=== PATIENT | female | born 1945 | race Caucasian/White ===

== ENCOUNTER → 2024-05-04 | Outpatient (CLI) | payer OTHER, SELFPAY ==
--- NOTE | 2024-05-04 10:26 | XR_ITS ---
Examination: PA lateral chest 2 views TECHNIQUE: Upright PA lateral chest 2 views Exam date and time: April 26, 2024 1042 hours Comparison April 04, 2011 INDICATIONS: Coughing left anterior chest pain beginning one week ago. FINDINGS: COPD with significant hyperexpansion Basilar bronchitis pattern Mild opacity on the lateral view in the lingular segment suspicious for early pneumonia No pulmonary edema Prominent osteopenia IMPRESSION: COPD Bibasilar bronchitis pattern Suspicious for early pneumonia in the lingular segment left upper lobe, recommend short-term chest imaging follow-up
--- NOTE | 2024-05-04 10:26 | XR_ITS ---
Examination: Lumbar spine, 5 views Technique: Lumbar spine AP, lateral, coned lateral lower lumbar spine, bilateral obliques 5 views Exam date and time: May 04, 2024 1048 hours INDICATIONS: Lower back pain beginning 3 weeks ago. FINDINGS: Severe osteopenia Moderate to advanced bilateral hip osteoarthritis Advanced diffuse facet arthropathy No lumbar fracture Mild to moderate diffuse lumbar degenerative disc disease, most prominent at L5-S1 Heavy abdominal aortic calcification with calcified mass in the spleen partially visualized, 6 cm IMPRESSION: Mild to moderate diffuse lumbar degenerative disc disease with significant spinal stenosis
== END | disposition home or self-care (01) ==
LOC: CDIM 09:59
PROVIDERS: PCP Internal Medicine; Referring Provider Internal Medicine; Visit Provider Internal Medicine
DX: J44.9 Chronic obstructive pulmonary disease, unspecified (principal); M51.369 Other intervertebral disc degeneration, lumbar region without mention of lumbar back pain or lower extremity pain; M48.061 Spinal stenosis, lumbar region without neurogenic claudication
CPT/HCPCS: 71046; 72110

== ENCOUNTER → 2024-05-18 | Outpatient (CLI) | payer OTHER, SELFPAY ==
[2024-05-18 10:37] LABS: Basophils # (Auto) 0.1 Thou/mm3 (0.0-0.2); Basophils % (Auto) 1 % (0-2.5); Eosinophils # (Auto) 0.4 Thou/mm3 (0.0-0.5); Eosinophils % (Auto) 5 % (0-10); Hematocrit 37.6 % (36.0-46.0); Hemoglobin 12.3 g/dL (12.0-16.0); Immature Granulocytes % (Auto) 0 % (0-0); Immature Granulocytes Auto 0.02 Thou/mm3 (0.00-0.00); Lymphocytes # (Auto) 2.3 Thou/mm3 (1.0-4.8); Lymphocytes % (Auto) 29 % (10-50); Mean Corpuscular HGB Conc 32.7 g/dl (31.0-37.0); Mean Corpuscular Hemoglobin 28.5 pg (25.0-35.0); Mean Corpuscular Volume 87 fL (80-100); Monocytes # (Auto) 0.5 Thou/mm3 (0.0-0.8); Monocytes % (Auto) 6 % (0-12); Neutrophils # (Auto) 4.8 Thou/mm3 (1.8-7.7); Neutrophils % (Auto) 60 % (37-80); Nucleated Red Blood Cell % 0 /100 WBC (0); Platelet Count 196 Thou/mm3 (140-440); RDW Standard Deviation 42.6 fL (36.4-46.3); Red Blood Count 4.32 Miln/mm3 (4.00-5.20)
[2024-05-18 10:46] LABS: Glucose Estimated Average 143 mg/dL (80-131); Hemoglobin A1C 6.6 % Hgb (4.8-6.0)
[2024-05-18 10:55] LABS: Vitamin D 25 Hydroxy Total 35.5 ng/mL (7.3-40.2)
[2024-05-18 10:59] LABS: Alanine Aminotransferase 20 U/L (10-49); Albumin, Serum 4.7 gm/dL (3.4-4.8); Albumin/Globulin Ratio 2.2 (1.2-2.2); Alkaline Phosphatase 82 U/L (46-116); Anion Gap 7 (7-16); Aspartate Amino Transferase 21 U/L (0-34); BUN/Creatinine Ratio 26 Ratio (12-20); Bilirubin,Total 0.6 mg/dL (0.3-1.2); Blood Urea Nitrogen 21 mg/dL (9-23); Calcium 10.5 mg/dL (8.3-10.6); Calcium (Corrected) 10.5 mg/dL (8.5-10.1); Carbon Dioxide 28.3 mMol/L (20.0-31.0); Cardiac Risk Estimate 2.3 RATIO (3.7-5.6); Chloride 107 mMol/L (98-107); Cholesterol 185 mg/dL (132-200); Creatinine (Component) 0.8 mg/dL (0.6-1.3); Globulin 2.1 gm/dL (2.3-3.5); Glucose 167 mg/dL (74-106); HDL Cholesterol 79 mg/dL (40-60); LDL Cholesterol,Calculated 87 mg/dL (0-130); Osmolality,Calculated 290 (275-295); Potassium 3.9 mMol/L (3.4-5.1); Sodium 142 mMol/L (136-145); Thyroid Stimulating Hormone 1.41 uIU/mL (0.55-4.78); Total Protein 6.8 gm/dL (5.7-8.2); Triglycerides 96 mg/dL (30-150); eGFR > 60 See Note
== END | disposition home or self-care (01) ==
PROVIDERS: PCP Internal Medicine; Referring Provider Internal Medicine; Visit Provider Internal Medicine
DX: I11.0 Hypertensive heart disease with heart failure (principal); E11.9 Type 2 diabetes mellitus without complications; E55.9 Vitamin D deficiency, unspecified; E78.2 Mixed hyperlipidemia; E03.9 Hypothyroidism, unspecified
CPT/HCPCS: 36415; 80053; 80061; 82306; 83036; 84439; 84443; 85025

== ENCOUNTER → 2024-09-08 | Outpatient (CLI) | payer OTHER, SELFPAY ==
[2024-09-08 10:19] LABS: Basophils # (Auto) 0.1 Thou/mm3 (0.0-0.2); Basophils % (Auto) 1 % (0-2.5); Eosinophils # (Auto) 0.4 Thou/mm3 (0.0-0.5); Eosinophils % (Auto) 5 % (0-10); Hematocrit 37.6 % (36.0-46.0); Hemoglobin 12.2 g/dL (12.0-16.0); Immature Granulocytes % (Auto) 0 % (0-0); Immature Granulocytes Auto 0.02 Thou/mm3 (0.00-0.00); Lymphocytes # (Auto) 2.2 Thou/mm3 (1.0-4.8); Lymphocytes % (Auto) 28 % (10-50); Mean Corpuscular HGB Conc 32.4 g/dl (31.0-37.0); Mean Corpuscular Hemoglobin 27.9 pg (25.0-35.0); Mean Corpuscular Volume 86 fL (80-100); Monocytes # (Auto) 0.5 Thou/mm3 (0.0-0.8); Monocytes % (Auto) 7 % (0-12); Neutrophils # (Auto) 4.8 Thou/mm3 (1.8-7.7); Neutrophils % (Auto) 60 % (37-80); Nucleated Red Blood Cell % 0 /100 WBC (0); Platelet Count 213 Thou/mm3 (140-440); RDW Standard Deviation 44.2 fL (36.4-46.3); Red Blood Count 4.38 Miln/mm3 (4.00-5.20); White Blood Count 7.9 Thou/mm3 (3.6-11.0)
[2024-09-08 10:49] LABS: Glucose Estimated Average 140 mg/dL (80-131); Hemoglobin A1C 6.5 % Hgb (4.8-6.0)
[2024-09-08 10:51] LABS: Iron 30 mcg/dL (50-170)
[2024-09-08 10:53] LABS: Alanine Aminotransferase 16 U/L (10-49); Albumin, Serum 4.7 gm/dL (3.4-4.8); Albumin/Globulin Ratio 2.4 (1.2-2.2); Alkaline Phosphatase 73 U/L (46-116); Anion Gap 10 (7-16); Aspartate Amino Transferase 25 U/L (0-34); BUN/Creatinine Ratio 31 Ratio (12-20); Bilirubin,Total 0.6 mg/dL (0.3-1.2); Blood Urea Nitrogen 25 mg/dL (9-23); Carbon Dioxide 26.2 mMol/L (20.0-31.0); Chloride 101 mMol/L (98-107); Creatinine (Component) 0.8 mg/dL (0.6-1.3); Free T4 (Free Thyroxine) 1.48 ng/dL (0.89-1.76); Glucose 143 mg/dL (74-106); Magnesium 1.7 mg/dL (1.6-2.6); Osmolality,Calculated 280 (275-295); Potassium 3.7 mMol/L (3.4-5.1); Sodium 137 mMol/L (136-145); Thyroid Stimulating Hormone 1.66 uIU/mL (0.55-4.78); Total Protein 6.7 gm/dL (5.7-8.2); eGFR > 60 See Note
[2024-09-08 11:09] LABS: Cardiac Risk Estimate 2.7 RATIO (3.7-5.6); Cholesterol 186 mg/dL (132-200); HDL Cholesterol 69 mg/dL (40-60); LDL Cholesterol,Calculated 103 mg/dL (0-130); Triglycerides 70 mg/dL (30-150)
[2024-09-08 11:47] LABS: Folate > 24.00 ng/mL (>5.38); Vitamin B12 584 pg/mL (211-911); Vitamin D 25 Hydroxy Total 37.5 ng/mL (7.3-40.2)
== END | disposition home or self-care (01) ==
LOC: COPL 09:29
PROVIDERS: PCP Internal Medicine; Referring Provider Internal Medicine; Visit Provider Internal Medicine
DX: E11.9 Type 2 diabetes mellitus without complications (principal); E55.9 Vitamin D deficiency, unspecified; I11.0 Hypertensive heart disease with heart failure
CPT/HCPCS: 36415; 80053; 80061; 82306; 82607; 82746; 83036; 83540; 83735; 84439; 84443; 85025

== ENCOUNTER → 2024-10-19 | Outpatient (CLI) | payer OTHER, SELFPAY ==
[2024-10-19 10:17] LABS: Glucose Estimated Average 137 mg/dL (80-131); Hemoglobin A1C 6.4 % Hgb (4.8-6.0)
[2024-10-19 10:22] LABS: Vitamin D 25 Hydroxy Total 40.2 ng/mL (7.3-40.2)
[2024-10-19 10:23] LABS: Basophils # (Auto) 0.1 Thou/mm3 (0.0-0.2); Basophils % (Auto) 1 % (0-2.5); Eosinophils # (Auto) 0.3 Thou/mm3 (0.0-0.5); Eosinophils % (Auto) 3 % (0-10); Hematocrit 35.8 % (36.0-46.0); Hemoglobin 12.2 g/dL (12.0-16.0); Immature Granulocytes Auto 0.02 Thou/mm3 (0.00-0.00); Lymphocytes # (Auto) 1.9 Thou/mm3 (1.0-4.8); Lymphocytes % (Auto) 23 % (10-50); Mean Corpuscular HGB Conc 34.1 g/dl (31.0-37.0); Mean Corpuscular Hemoglobin 28.4 pg (25.0-35.0); Mean Corpuscular Volume 83 fL (80-100); Monocytes # (Auto) 0.5 Thou/mm3 (0.0-0.8); Monocytes % (Auto) 6 % (0-12); Neutrophils # (Auto) 5.5 Thou/mm3 (1.8-7.7); Neutrophils % (Auto) 66 % (37-80); Nucleated Red Blood Cell # 0.00 Thou/mm3 (0.00-0.00); Nucleated Red Blood Cell % 0 /100 WBC (0); Platelet Count 198 Thou/mm3 (140-440); RDW Standard Deviation 45.7 fL (36.4-46.3); Red Blood Count 4.29 Miln/mm3 (4.00-5.20); White Blood Count 8.3 Thou/mm3 (3.6-11.0)
[2024-10-19 10:33] LABS: Alanine Aminotransferase 20 U/L (10-49); Albumin, Serum 4.5 gm/dL (3.4-4.8); Albumin/Globulin Ratio 2.0 (1.2-2.2); Alkaline Phosphatase 60 U/L (46-116); Anion Gap 11 (7-16); Aspartate Amino Transferase 25 U/L (0-34); BUN/Creatinine Ratio 25 Ratio (12-20); Bilirubin,Total 0.6 mg/dL (0.3-1.2); Blood Urea Nitrogen 20 mg/dL (9-23); Calcium 9.5 mg/dL (8.3-10.6); Calcium (Corrected) 9.5 mg/dL (8.5-10.1); Carbon Dioxide 27.4 mMol/L (20.0-31.0); Cardiac Risk Estimate 2.8 RATIO (3.7-5.6); Chloride 105 mMol/L (98-107); Cholesterol 188 mg/dL (132-200); Creatinine (Component) 0.8 mg/dL (0.6-1.3); Free T4 (Free Thyroxine) 1.35 ng/dL (0.89-1.76); Globulin 2.2 gm/dL (2.3-3.5); Glucose 152 mg/dL (74-106); HDL Cholesterol 67 mg/dL (40-60); LDL Cholesterol,Calculated 97 mg/dL (0-130); Osmolality,Calculated 290 (275-295); Phosphorous 3.0 mg/dL (2.4-5.1); Potassium 3.4 mMol/L (3.4-5.1); Sodium 143 mMol/L (136-145); Thyroid Stimulating Hormone 1.74 uIU/mL (0.55-4.78); Total Protein 6.7 gm/dL (5.7-8.2); Triglycerides 118 mg/dL (30-150); eGFR > 60 See Note
== END | disposition home or self-care (01) ==
LOC: COPL 09:13
PROVIDERS: PCP Internal Medicine; Referring Provider Internal Medicine; Visit Provider Internal Medicine
DX: I11.0 Hypertensive heart disease with heart failure (principal)
CPT/HCPCS: 36415; 80053; 80061; 82306; 83036; 84100; 84439; 84443; 85025

== ENCOUNTER → 2024-11-06 | Outpatient (CLI) | payer OTHER, SELFPAY ==
--- NOTE | 2024-11-06 09:15 | XR_ITS ---
Examination: MRI of brain without intravenous contrast. MRI brain with intravenous contrast. Date and time of exam:November 06, 2024 0948 hours INDICATIONS: Dizziness numbness in the feet unsteady difficulty walking 2 months Technique: Multiple axial and sagittal images of the brain to been obtained. Siemens high-resolution 1.52 Adele short bore scanner utilized. Sagittal sections, T1 weighted images, TR 500, TE 14, are performed. Axial sections proton-density and T2-weighted images have been obtained. Inversion recovery axial images, TR 9260, TE 111, TR 2500. Diffusion weighted images, axial sections, TR 4800, TE 128, B value 1000. Axial sections, ADC map, TR 4800, TE 128. Axial and coronal images were also obtained post 13 cc gadolinium administered intravenously. Findings:: Enlargement of the sella turcica is not present. The optic chiasm and infundibular stalk are not remarkable. There is no localized enlargement of the medulla or ken. Fourth ventricle and cerebellar tonsils appear normal in position. No subacute area of hemorrhage density is seen. Fourth ventricle is midline. Mass in the cerebellopontine angle region is not evident. 7th and 8th nerve complexes exhibit symmetry Globes are symmetrical Orbital musculature including medial lateral rectus muscles do not exhibit abnormality Increased white matter signal is prominent, including old infarct left posterior parietal lobe Effacement of the cortical sulcal markings is not identified. Mass effect upon the ventricular system is not identified. Diffusion-weighted images demonstrate no focus of restricted diffusion Contrast images demonstrate no abnormal enhancement Impression: Negative for acute hemorrhage or mass effect or midline shift No acute infarct. 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
== END | disposition home or self-care (01) ==
LOC: SMRI 08:19
PROVIDERS: Referring Provider Internal Medicine; Visit Provider Internal Medicine
DX: R42 Dizziness and giddiness (principal); R26.81 Unsteadiness on feet; Z86.73 Personal history of transient ischemic attack (TIA), and cerebral infarction without residual deficits
CPT/HCPCS: 70553; A9579

== ENCOUNTER 2024-11-17 11:51 | Emergency (ER) | payer OTHER, SELFPAY ==
[2024-11-17 11:52] VITALS: PULSE 88; RESP 20; O2SAT 99; BMI 24.5
--- NOTE | 2024-11-17 11:56 | XR_ITS ---
Examination:Left hip AP, lateral, AP pelvis 3 views Technique: Hip AP lateral, AP pelvis, 3 views Exam date and time:November 17, 2024 1249 hours INDICATIONS: Patient fell today with into the left hip, left hip pain. FINDINGS: Acute comminuted mildly angulated intertrochanteric fracture left hip Severe osteopenia No hip dislocation Moderate to advanced bilateral hip osteoarthritis Right hip bones of the pelvis intact IMPRESSION: Acute comminuted mildly angulated intertrochanteric fracture left hip
--- NOTE | 2024-11-17 11:56 | EKG_ITS ---
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
--- NOTE | 2024-11-17 11:56 | XR_ITS ---
Examination: CT cervical spine without contrast 2-D sagittal reconstructions 2-D coronal reconstructions 3-D reconstructions. Exam date and time:November 17, 2024 1310 hours INDICATIONS: Ground-level fall today with injury to the neck, neck pain CTDI:vol (mGy) 16.3 DLP: (mGycm) 364 Technique: Multiple 2 mm axial sections of the cervical spine have been obtained. The coronal and sagittal reconstructions have been obtained. 3-D reconstructions have been obtained. Low dose protocols were performed. One or more of the following dose reduction techniques were used; automated exposure control, adjustment of the mA and/or KV according to patient size, use of iterative reconstruction technique. Findings: Axial sections demonstrate intact base of the skull. C1 exhibit satisfactory relationship to the odontoid. No acute cervical vertebral body fracture seen. Alignment posterior spinous processes satisfactory. Impression: No acute cervical fracture.
--- NOTE | 2024-11-17 11:56 | XR_ITS ---
Examination: PA chest single view TECHNIQUE: Upright PA chest single view Date and time: November 17, 2024 1251 hours INDICATIONS: Patient fell today with into the chest, chest pain FINDINGS: Normal heart size. No pneumothorax. Severe osteopenia. Clavicles ribs appear intact IMPRESSION: No pneumothorax pulmonary contusion or hemothorax
--- NOTE | 2024-11-17 11:56 | XR_ITS ---
Examination: CT brain head without contrast. 2-D sagittal coronal reconstructions Date and time of exam:November 17, 2024 1310 hours INDICATIONS: Patient fell today with injury to the head, head pain CTDI: vol (mGy):50.8 DLP: (mGycm):1011 Technique: Multiple CT axial sections of the brain have been obtained, 5 mm slice thickness. Contrast has not been administered. 2-D sagittal, coronal reconstructions have been obtained Low dose protocols were performed. One or more of the following dose reduction techniques were used; automated exposure control, adjustment of the mA and/or KV according to patient size, use of iterative reconstruction technique. Findings: No significant ventricular enlargement. Larger encephalomalacia posterior left parietal lobe Intra-axial or extra-axial hemorrhage density is not seen. No mass effect or midline shift Basal cisterns are not remarkable. Fourth ventricle is midline. Cranial vault intact. Impression: Negative for acute hemorrhage, mass effect or midline shift
--- NOTE | 2024-11-17 12:00 | PD.EDADULT ---
ED General RME/HPI General Chief complaint: Fall Stated complaint: FALL Time Seen by Provider: 11/17/24 11:55 Arrival date/time: 11/17/24 11:51 CC: Left hip pain HPI patient is ground-level fall after rotating with her left foot remaining in place the patient abruptly fell not striking her head the patient is on blood thinner secondary to a CVA years ago. Patient is awake alert oriented x 3 Glascow coma 15 no focal deficits when laying still left hip pain is 2 out of 10 scale. Is able to move toes ankles and knee of the left lower extremity with pain in the hip. Patient denies any nausea vomiting blurred vision altered mentation loss of consciousness chest pain or shortness of breath. Related Data Home Medications ?Medication ?Instructions ?Recorded ?Confirmed amlodipine 5 mg tablet 5 mg PO BID 11/17/24 11/17/24 atorvastatin 40 mg tablet 40 mg PO DAILY 11/17/24 11/17/24 carvedilol 12.5 mg tablet 12.5 mg PO Q12H 11/17/24 11/17/24 clopidogrel 75 mg tablet 75 mg PO DAILY 11/17/24 11/17/24 losartan 100 1 tab PO DAILY 11/17/24 11/17/24 mg-hydrochlorothiazide 12.5 mg tablet metformin 1,000 mg tablet 1,000 mg PO BID 11/17/24 11/17/24 oxybutynin chloride 5 mg tablet 5 mg PO DAILY 11/17/24 11/17/24 sertraline 100 mg tablet 100 mg PO Q24H 11/17/24 11/17/24 sitagliptin phosphate 100 mg 100 mg PO DAILY 11/17/24 11/17/24 tablet (Januvia) sitagliptin phosphate 100 mg 100 mg PO QDAY 11/17/24 11/17/24 tablet (Januvia) Allergies Allergy/AdvReac Type Severity Reaction Status Date / Time Sulfa (Sulfonamide Allergy Verified 11/17/24 11:59 Antibiotics) Review of Systems Review of Systems Narrative Review of Systems: GEN: No fever, no chills, no weight loss EYES: No discharge, no visual changes, no pain HEENT: No ear pain, no congestion, no sore throat PULM: No shortness of breath, no cough, no congestion CV: No chest pain, no dyspnea on exertion, no palpitations GI: No nausea, no vomiting, no diarrhea, no pain, no constipation : No frequency, no urgency, no dysuria MUSC/SKEL: + joint pain, no back pain SKIN: No rash PSYCH: No hallucinations, no depression HEME/LYMPH: No easy bleeding or bruising tendencies NEURO: No weakness, no headache Past Medical History Social History SMOKING STATUS: Former smoker ED Exam Narrative Physical exam: [General: In moderate discomfort but not in any acute distress Head normocephalic HEENT: Eyes pupils are PERRLA EOMs are intact mouth [place] dry membranes uvula is midline swallow symmetrical phonation is normal all other subsystems of HEENT are within acceptable limits Neck is supple nontender Chest equal chest rise nontender to palpation Respiratory: Clear to auscultation no wheezes crackles or rubs CV: Rate rhythm is regular no murmurs rubs or clicks Abdomen is distended secondary to body habitus soft nontender no masses positive bowel sounds all 4 quadrants Pelvis: No pain with pelvic squeeze or pelvic rock significant pain with attempted flexion of the hip. Back: No CVA tenderness no spinous process tenderness from cervical spine thoracic and lumbar spine Skin: Intact no petechiae rash induration ulceration or crepitus Extremities: Significant decreased range of motion of the left lower extremity secondary to pain cap refill in all digits less than 2 seconds neurosensory intact. Neuro: Awake alert oriented x3 Glascow coma 15 no focal deficits] Course Course Course Narrative: At 1350, the patient is resting comfortably additional pain medicine was prescribed, the patient has intertrochanteric fracture we have no Ortho on-call for the next 5 days we will transfer the patient. Patient and family members are in agreement with this plan heat transfer technician notified. Spoke with the heat transfer technician for [facility] except Dr. Reyez excepting. Quality Measures none Orders Category Date Time Status EKG (ED ONLY) *Do not use* NOW Care 11/17/24 11:56 Completed Saline [Insert IV] NOW Care 11/17/24 11:56 Completed Referral - Fermentologist Stat Cons 11/17/24 13:[address] cervical spine wo con Stat Exams 11/17/24 11:[address] head/brain wo con Stat Exams 11/17/24 11:56 Completed EKG (ED Only) Stat Exams 11/17/24 11:56 Draft XR chest 1V Stat Exams 11/17/24 11:56 Completed XR hip LT w pelvis 2-3V Stat Exams 11/17/24 11:56 Completed B-Type Natriuretic Peptide Stat Lab 11/17/24 12:05 Completed CBC Stat Lab 11/17/24 12:05 Completed Comprehensive Metabolic Panel Stat Lab 11/17/24 12:05 Completed Drug Screen,Urine Stat Lab 11/17/24 15:56 Completed LDH (Lactate Dehydrogenase) Stat Lab 11/17/24 12:05 Completed Magnesium Stat Lab 11/17/24 12:05 Completed Partial Thromboplastin Time Stat Lab 11/17/24 12:05 Completed Prothrombin Time with INR Stat Lab 11/17/24 12:05 Completed Urinalysis Stat Lab 11/17/24 15:56 Completed Morphine Inj Med 11/17/24 12:57 Discontinued 4 mg IVP X1 ONE Morphine Inj Med 11/17/24 13:49 Discontinued 6 mg IVP X1 ONE Morphine Inj Med 11/17/24 16:22 Discontinued 6 mg IVP X1 ONE Morphine Inj Med 11/17/24 18:27 Discontinued 6 mg IVP X1 ONE Ondansetron Inj [Zofran Inj] Med 11/17/24 12:57 Discontinued 4 mg IVP X1 ONE Sodium Chloride 0.9% 1000 ml [Ns] 1,000 ml Med 11/17/24 11:58 Discontinued IV 85 mls/hr fentaNYL INJ [Sublimaze Inj] Med 11/17/24 11:56 Discontinued 50 mcg IVP X1 ONE Vital Signs Vital signs: Vital Signs Temperature 98.4 F 11/17/24 12:15 Pulse Rate 68 11/17/24 12:15 Respiratory Rate 16 11/17/24 12:15 Blood Pressure 156/91 H 11/17/24 12:15 Pulse Oximetry (%) 98 11/17/24 12:15 Oxygen Delivery Method Room Air 11/17/24 12:15 Discharge Plan Plan Patient Disposition: [facility] Acute Care [facility] Facility Pt Being Transferred to: [facility] Service Needed for Transfer: Orthopedics Patient condition on transfer: Stable Prescriptions/Referrals Prescriptions/Med Rec: No Action losartan-hydrochlorothiazide 100-12.5 mg tablet 1 tab PO DAILY carvedilol 12.5 mg tablet 12.5 mg PO Q12H Patient Comments: TAKE 1 TABLET TWICE A DAY oxybutynin chloride 5 mg tablet 5 mg PO DAILY sertraline 100 mg tablet 100 mg PO Q24H Patient Comments: TAKE 1 TABLET BY MOUTH EVERY DAY amlodipine 5 mg tablet 5 mg PO BID Patient Comments: TAKE 1 TABLET BY MOUTH TWICE A DAY clopidogrel 75 mg tablet 75 mg PO DAILY Patient Comments: TAKE 1 TABLET DAILY metformin 1,000 mg tablet 1,000 mg PO BID Patient Comments: TAKE 1 TABLET TWICE A DAY atorvastatin 40 mg tablet 40 mg PO DAILY Patient Comments: TAKE 1 TABLET BY MOUTH EVERY DAY Januvia 100 mg tablet 100 mg PO QDAY Januvia 100 mg tablet 100 mg PO DAILY Patient Comments: TAKE 1 TABLET DAILY Problem List Clinical Impression: Closed intertrochanteric fracture of left femur Patient/Caregiver Discharge Instructions Print Language: Macedonian Stand Alone Forms: Trina Award Info., Patient Portal Info Letter PA/PHARMACIST HELPER Supervising Physician PA/PHARMACIST HELPER Supervising Physician: Taye Rosado ENP, MD Attestation MD Attestation The patient was seen by the midlevel practitioner. I, the co-signing physician, was present during the entire ER visit. While I did not physically examine the patient, I was available for consultation as needed. I agree with the plan and documentation. MDM Clinical Information Provided by patient and EMS Medical Records [facility]ed [facility] and EMS Meds/Rx Considered, not Ordered None Labs/Rad/Tests considered, not Ordered None Chronic Illness/Social Conditions Add or document further as needed: CVA on blood thinners EKG EKG Interpretation narrative: EKG performed at 1209 shows a ventricular rate of 6 7 OK interval 146 QRS of 86 QTc 437 sinus rhythm with occasional PVC. Lab Interpretation Lab(s) interpretation(s): CBC shows no acute leukocytosis anemia thrombocytopenia Coags within acceptable limits CMP shows a glucose of 119, and magnesium of 1.2, BNP of 216 no other electrolyte imbalances renal impairment transaminitis or T. bili elevation. Imaging Provider imaging interpretation(s): Left hip: Left intertrochanteric fracture as interpreted by me.. Chest x-ray as interpreted by me shows no acute finding requires emergent or immediate intervention. Medication Administration(s) Medication Administration History Discontinued Medications Fentanyl Citrate (Fentanyl Cit Inj 50 Mcg/Ml Amp 2ml) 50 mcg IVP X1 ONE Stop: 11/17/24 11:57 Last Admin: 11/17/24 12:10 Dose: 50 mcg Documented By: TOLU Sodium Chloride (Ns) 1,000 mls @ 85 mls/hr IV .[id number] Stop: 12/17/24 11:57 Last Admin: 11/17/24 12:12 Dose: 85 mls/hr Documented By: AA Morphine Sulfate (Morphine Sulf Inj 10 Mg/Ml Vial) 4 mg IVP X1 ONE Stop: 11/17/24 12:58 Last Admin: 11/17/24 13:06 Dose: 4 mg Documented By: RD Morphine Sulfate (Morphine Sulf Inj 10 Mg/Ml Vial) 6 mg IVP X1 ONE Stop: 11/17/24 13:50 Last Admin: 11/17/24 14:02 Dose: 6 mg Documented By: RD Morphine Sulfate (Morphine Sulf Inj 10 Mg/Ml Vial) 6 mg IVP X1 ONE Stop: 11/17/24 16:23 Last Admin: 11/17/24 16:30 Dose: 6 mg Documented By: LIVAN Morphine Sulfate (Morphine Sulf Inj 10 Mg/Ml Vial) 6 mg IVP X1 ONE Stop: 11/17/24 18:28 Last Admin: 11/17/24 18:38 Dose: 6 mg Documented By: SUSHILA Ondansetron HCl (Ondansetron Inj 2 Mg/Ml Inj 2 Ml) 4 mg IVP X1 ONE; Protocol Stop: 11/17/24 12:58 Last Admin: 11/17/24 13:05 Dose: 4 mg Documented By: RHIANNA
[2024-11-17] MEDS: fentaNYL CIT INJ 50 mCg/ML AMP 2ML IVP (12:10)
[2024-11-17] MEDS: SODIUM CHLORIDE 0.9% 1000 ML 1,000 ML 85 ML IV (12:12)
[2024-11-17 12:15] VITALS: BP 156/91; PULSE 68; RESP 16; TEMP 36.9; O2SAT 98
[2024-11-17 12:24] LABS: Basophils # (Auto) 0.1 Thou/mm3 (0.0-0.2); Basophils % (Auto) 1 % (0-2.5); Eosinophils # (Auto) 0.3 Thou/mm3 (0.0-0.5); Eosinophils % (Auto) 4 % (0-10); Hematocrit 37.3 % (36.0-46.0); Hemoglobin 12.6 g/dL (12.0-16.0); Immature Granulocytes Auto 0.06 Thou/mm3 (0.00-0.00); Lymphocytes # (Auto) 2.4 Thou/mm3 (1.0-4.8); Lymphocytes % (Auto) 31 % (10-50); Mean Corpuscular HGB Conc 33.8 g/dl (31.0-37.0); Mean Corpuscular Hemoglobin 29.3 pg (25.0-35.0); Mean Corpuscular Volume 87 fL (80-100); Monocytes # (Auto) 0.5 Thou/mm3 (0.0-0.8); Monocytes % (Auto) 7 % (0-12); Neutrophils # (Auto) 4.4 Thou/mm3 (1.8-7.7); Neutrophils % (Auto) 57 % (37-80); Nucleated Red Blood Cell # 0.00 Thou/mm3 (0.00-0.00); Nucleated Red Blood Cell % 0 /100 WBC (0); Platelet Count 181 Thou/mm3 (140-440); RDW Standard Deviation 46.3 fL (36.4-46.3); Red Blood Count 4.30 Miln/mm3 (4.00-5.20); White Blood Count 7.7 Thou/mm3 (3.6-11.0)
[2024-11-17 12:40] LABS: B-Type Natriuretic Peptide 216 pg/mL (0-100)
[2024-11-17 12:42] LABS: Alanine Aminotransferase 18 U/L (10-49); Albumin, Serum 4.4 gm/dL (3.4-4.8); Albumin/Globulin Ratio 2.3 (1.2-2.2); Alkaline Phosphatase 64 U/L (46-116); Anion Gap 13 (7-16); Aspartate Amino Transferase 24 U/L (0-34); BUN/Creatinine Ratio 26 Ratio (12-20); Bilirubin,Total 0.5 mg/dL (0.3-1.2); Blood Urea Nitrogen 18 mg/dL (9-23); Calcium 10.2 mg/dL (8.3-10.6); Calcium (Corrected) 10.2 mg/dL (8.5-10.1); Carbon Dioxide 24.6 mMol/L (20.0-31.0); Chloride 104 mMol/L (98-107); Creatinine (Component) 0.7 mg/dL (0.6-1.3); Estimated Creatinine Clearance 60.0 mL/min (>60); Globulin 1.9 gm/dL (2.3-3.5); Glucose 119 mg/dL (74-106); LDH (Lactate Dehydrogenase) 227 U/L (120-246); Magnesium 1.2 mg/dL (1.6-2.6); Osmolality,Calculated 286 (275-295); Potassium 3.4 mMol/L (3.4-5.1); Sodium 142 mMol/L (136-145); Total Protein 6.3 gm/dL (5.7-8.2); eGFR > 60 See Note
[2024-11-17 13:01] LABS: INR 1.0 (0.9-1.3); Partial Thromboplastin Time 21.0 Seconds (22.0-36.0); Prothrombin Time 11.3 Seconds (9.0-12.2)
[2024-11-17] MEDS: ONDANSETRON INJ 2 MG/ML INJ 2 ML 4 MG IVP (13:05)
[2024-11-17] MEDS: MORPHINE SULF INJ 10 MG/ML VIAL 4 MG IVP (13:06)
--- NOTE | 2024-11-17 13:10 | PC.CC ---
Addendum entered by Kristin Morrow RN 11/17/24 15:26: 1520 sent paperwork to [facility] through [email or web address]. Called [facility], spoke to Halina and set up the transport. The slat pickler time is 1730. Addendum entered by Kristin Morrow RN 11/17/24 15:19: 1500 transfer packet is complete with CD inside including all signatures. Gave transfer packet to charge nurse and number to call for report is on tracker. Addendum entered by Kristin Morrow RN 11/17/24 14:31: 1427 received call from [facility] at [facility], she sated she wants to speak with Taye Rosado. Conference call connected. Summer gave me accepting information. Patient is accepted at [facility] for ED to ED. Accepted by Dr. Reyez. Number to call report is [phone]. Addendum entered by Kristin Morrow RN 11/17/24 14:08: 1406 received call from [facility] at [facility] and initiated the transfer. Addendum entered by Kristin Morrow RN 11/17/24 13:54: 1354 called [facility] to initiate the transfer, left VM. Addendum entered by Kristin Morrow RN 11/17/24 13:53: called [facility], spoke to Lynne and initiated the transfer. Original Note: 1340 clinicals sent to [facility]. 1310 Received call from Taye Beaver that pt needs to be transferred for acute comminuted mildly angulated intertrochanteric fracture left hip needs orthopedic surgery.?
[2024-11-17] MEDS: MORPHINE SULF INJ 10 MG/ML VIAL 6 MG IVP ×3 (14:02→18:38)
[2024-11-17 14:06] VITALS: BP 167/87; PULSE 69; RESP 18; TEMP 36.8; O2SAT 94
[2024-11-17 16:02] LABS: Collection Type, Urine Clean Catch
[2024-11-17 16:06] LABS: Bilirubin,Urine Negative (Negative); Blood,Urine Negative (Negative); Clarity,Urine Clear (Clear/Hazy); Color,Urine Lt-Yellow (Lt Yel-Yel); Glucose, Urine Negative (Negative); Ketones,Urine Negative (Negative); Leukocyte Esterase,Urine Negative (Negative); Nitrite,Urine Negative (Negative); PH,Urine 6.0 (5.0-7.0); Protein,Urine Negative (Neg - Trace); RBC,Urine 2 /hpf (0-3); Specific Gravity,Urine 1.016 (1.001-1.035); Squamous Epithelial Cell,Urine < 1 /hpf (0-5); Urobilinogen,Urine Negative mg/dL (0.0-1.0); WBC,Urine 1 /hpf (0-5)
[2024-11-17 16:15] LABS: Amphetamine/Methamp Scrn,U Negative (Negative); Barbiturate Screen,Urine Negative (Negative); Benzodiazepines Screen,Urine Negative (Negative); Benzoylecgonine Screen, Ur Negative (Negative); Fentanyl Screen,Urine Positive (Negative); Opiate Screen,Urine Positive (Negative); THC Screen,Urine Negative (Negative)
--- NOTE | 2024-11-17 16:21 | PC.NURSE ---
PATIENT STATES PAIN 9/10. INFORMED ER PROVIDER AND RECEIVED VERBAL ORDER FOR 6MG MORPHINE IV
--- NOTE | 2024-11-17 16:38 | PC.NURSE ---
REPORT GIVEN TO BHARAT ADLER AT [facility]. INFORMED OF ER PICK [phone].
[2024-11-17 18:26] VITALS: BP 179/86; PULSE 69; RESP 18; TEMP 37.3; O2SAT 97
--- NOTE | 2024-11-17 18:54 | PC.NURSE ---
IMPERIAL HERE TO TRANSFER PT.
== END 2024-11-17 18:54 | disposition short-term general hospital (02) ==
LOC: SERX 14:00
PROVIDERS: Registered Nurse General Practice; Emergency Provider Family Medicine; PCP Internal Medicine
DX: S72.142A Displaced intertrochanteric fracture of left femur, initial encounter for closed fracture (principal); W19.XXXA Unspecified fall, initial encounter; R94.31 Abnormal electrocardiogram [ECG] [EKG]; S09.90XA Unspecified injury of head, initial encounter; R07.9 Chest pain, unspecified
CPT/HCPCS: 36415; 70450; 71045; 72125; 73502; 80053; 80307; 81001; 83615; 83735; 83880; 85025; 85610; 85730; 93005; 96374; 96375; 96376; 99283; J2270; J2405; J3010; J7030

== ENCOUNTER → 2024-12-15 | Outpatient (CLI) | payer OTHER, SELFPAY ==
[2024-12-15 12:19] LABS: Basophils # (Auto) 0.1 Thou/mm3 (0.0-0.2); Basophils % (Auto) 1 % (0-2.5); Eosinophils # (Auto) 0.3 Thou/mm3 (0.0-0.5); Eosinophils % (Auto) 3 % (0-10); Hematocrit 34.1 % (36.0-46.0); Hemoglobin 11.1 g/dL (12.0-16.0); Immature Granulocytes Auto 0.05 Thou/mm3 (0.00-0.00); Lymphocytes # (Auto) 1.9 Thou/mm3 (1.0-4.8); Lymphocytes % (Auto) 18 % (10-50); Mean Corpuscular HGB Conc 32.6 g/dl (31.0-37.0); Mean Corpuscular Hemoglobin 29.3 pg (25.0-35.0); Mean Corpuscular Volume 90 fL (80-100); Monocytes # (Auto) 0.6 Thou/mm3 (0.0-0.8); Monocytes % (Auto) 6 % (0-12); Neutrophils # (Auto) 7.5 Thou/mm3 (1.8-7.7); Neutrophils % (Auto) 72 % (37-80); Nucleated Red Blood Cell # 0.00 Thou/mm3 (0.00-0.00); Nucleated Red Blood Cell % 0 /100 WBC (0); Platelet Count 250 Thou/mm3 (140-440); RDW Standard Deviation 45.8 fL (36.4-46.3); Red Blood Count 3.79 Miln/mm3 (4.00-5.20); White Blood Count 10.5 Thou/mm3 (3.6-11.0)
[2024-12-15 12:35] LABS: Glucose Estimated Average 131 mg/dL (80-131); Hemoglobin A1C 6.2 % Hgb (4.8-6.0)
[2024-12-15 13:01] LABS: Iron 38 mcg/dL (50-170)
[2024-12-15 13:07] LABS: Folate > 24.00 ng/mL (>5.38); Vitamin B12 483 pg/mL (211-911); Vitamin D 25 Hydroxy Total 36.6 ng/mL (7.3-40.2)
[2024-12-15 13:10] LABS: Alanine Aminotransferase 13 U/L (10-49); Albumin, Serum 4.4 gm/dL (3.4-4.8); Albumin/Globulin Ratio 2.3 (1.2-2.2); Alkaline Phosphatase 132 U/L (46-116); Anion Gap 15 (7-16); Aspartate Amino Transferase 22 U/L (0-34); BUN/Creatinine Ratio 22 Ratio (12-20); Bilirubin,Total 0.6 mg/dL (0.3-1.2); Blood Urea Nitrogen 20 mg/dL (9-23); Calcium 9.7 mg/dL (8.3-10.6); Calcium (Corrected) 9.7 mg/dL (8.5-10.1); Carbon Dioxide 22.1 mMol/L (20.0-31.0); Chloride 105 mMol/L (98-107); Creatinine (Component) 0.9 mg/dL (0.6-1.3); Free T4 (Free Thyroxine) 1.62 ng/dL (0.89-1.76); Globulin 1.9 gm/dL (2.3-3.5); Glucose 181 mg/dL (74-106); Magnesium 1.3 mg/dL (1.6-2.6); Osmolality,Calculated 290 (275-295); Potassium 3.6 mMol/L (3.4-5.1); Sodium 142 mMol/L (136-145); Thyroid Stimulating Hormone 2.33 uIU/mL (0.55-4.78); Total Protein 6.3 gm/dL (5.7-8.2); eGFR > 60 See Note
[2024-12-15 13:22] LABS: Cardiac Risk Estimate 2.5 RATIO (3.7-5.6); Cholesterol 145 mg/dL (132-200); HDL Cholesterol 57 mg/dL (40-60); LDL Cholesterol,Calculated 65 mg/dL (0-130); Triglycerides 115 mg/dL (30-150)
== END | disposition home or self-care (01) ==
LOC: COPL 11:37
PROVIDERS: PCP Internal Medicine; Referring Provider Internal Medicine; Visit Provider Internal Medicine
DX: I11.0 Hypertensive heart disease with heart failure (principal); E11.9 Type 2 diabetes mellitus without complications; E55.9 Vitamin D deficiency, unspecified
CPT/HCPCS: 36415; 80053; 80061; 82306; 82607; 82746; 83036; 83540; 83735; 84439; 84443; 85025

== ENCOUNTER 2025-02-20 15:58 | Emergency (ER) | payer MEDICARE, SELFPAY ==
[2025-02-20 15:59] VITALS: BP 158/78; PULSE 92; RESP 18; TEMP 37.8; O2SAT 95
--- NOTE | 2025-02-20 16:01 | XR_ITS ---
Examination: Left hip AP, lateral, AP pelvis 3 views Technique: Hip AP lateral, AP pelvis, 3 views Exam date and time: February 20, 2025, 1626 hours INDICATIONS: Bleeding from incision site after pin insertion left hip 3 days ago FINDINGS: Operative reduction internal fixation intertrochanteric fracture left hip Soft tissue swelling lateral to the left hip Orthopedic hardware satisfactory position Hip fracture appears to have healed Right hip bones of the pelvis intact No ranulof cortical bone destruction IMPRESSION: Consider CT scan pelvis post intravenous contrast follow-up to assess the soft tissue swelling lateral to the left hip.
--- NOTE | 2025-02-20 16:02 | PD.EDADULT ---
ED General RME/HPI General Chief complaint: Wound/Laceration Stated complaint: HIP WOUND Time Seen by Provider: 02/20/25 16:00 Arrival date/time: 02/20/25 15:58 CC: No bleeding from the left surgical hip site. HPI patient had a pin inserted 3 days ago after a pin came out from a surgical replacement from [facility]. Patient denies fever chills chest pain shortness of breath EMS reports stable vital signs. Related Data Home Medications ?Medication ?Instructions ?Recorded ?Confirmed amlodipine 5 mg tablet 5 mg PO BID 11/17/24 11/17/24 atorvastatin 40 mg tablet 40 mg PO DAILY 11/17/24 11/17/24 carvedilol 12.5 mg tablet 12.5 mg PO Q12H 11/17/24 11/17/24 clopidogrel 75 mg tablet 75 mg PO DAILY 11/17/24 11/17/24 losartan 100 1 tab PO DAILY 11/17/24 11/17/24 mg-hydrochlorothiazide 12.5 mg tablet metformin 1,000 mg tablet 1,000 mg PO BID 11/17/24 11/17/24 oxybutynin chloride 5 mg tablet 5 mg PO DAILY 11/17/24 11/17/24 sertraline 100 mg tablet 100 mg PO Q24H 11/17/24 11/17/24 sitagliptin phosphate 100 mg 100 mg PO DAILY 11/17/24 11/17/24 tablet (Januvia) sitagliptin phosphate 100 mg 100 mg PO QDAY 11/17/24 11/17/24 tablet (Januvia) Allergies Allergy/AdvReac Type Severity Reaction Status Date / Time No Known Allergies Allergy Verified 02/20/25 16:25 Review of Systems Review of Systems Narrative Review of Systems: GEN: No fever, no chills, no weight loss EYES: No discharge, no visual changes, no pain HEENT: No ear pain, no congestion, no sore throat PULM: No shortness of breath, no cough, no congestion CV: No chest pain, no dyspnea on exertion, no palpitations GI: No nausea, no vomiting, no diarrhea, no pain, no constipation : No frequency, no urgency, no dysuria MUSC/SKEL: No joint pain, no back pain SKIN: Bleeding from surgical site, no rash PSYCH: No hallucinations, no depression HEME/LYMPH: No easy bleeding or bruising tendencies NEURO: No weakness, no headache Past Medical History Past Medical History NEUROLOGIC: Positive Transient Ischemic Attacks (TIA) (2024) CARDIAC: Positive Hypercholesterolemia and Hypertension; Negative Congestive Heart Failure RESPIRATORY: Negative Chronic Obstructive Pulmonary Disease (COPD) GENITOURINARY: Negative Renal Disease ENDOCRINE: Positive Diabetes Mellitus Type 2; Negative Diabetes Mellitus Type 1 Surgical History SURGICAL: Positive Hysterectomy Social History SMOKING STATUS: Former smoker ED Exam Narrative Physical exam: [General: Not in any acute distress Head normocephalic HEENT: Within acceptable limits Neck is supple nontender Chest equal chest rise nontender to palpation Respiratory: Clear to auscultation no wheezes crackles or rubs CV: Rate rhythm is regular no murmurs rubs or clicks Abdomen is soft nontender no masses positive bowel sounds all 4 quadrants Back: No CVA tenderness no spinous process tenderness from cervical spine thoracic and lumbar spine Skin: Initial assessment shows the patient has surgical pads that are completely bloodsoaked and an occlusive dressing. The patient is able to flex the hip and move the knee without complication. Otherwise skin is intact no petechiae rash induration ulceration or crepitus. Extremities: Moving all extremity against resistance cap refill less than 2 seconds neurosensory intact Neuro: Awake alert oriented x3 Glascow coma 15 no focal deficits] Course Course Course Narrative: CC: No dressing was applied without complication at 1800, it was reassessed there is no new bleeding. Hemoglobin is 9.6 I do not have a recent hemoglobin so I have no comparison as to how much is actually been loss. Advised the patient and the family member that the blood count was down but not low enough to be transfused and if there is rebleeding to return the emergency room to reassess. This time comfortable to discharging home for surgical site bleeding diagnosis. Quality Measures none Orders Category Date Time Status XR hip LT w pelvis 2-3V Stat Exams 02/20/25 16:01 Completed CBC Stat Lab 02/20/25 16:24 Completed CMP [Comprehensive Metabolic Panel] Stat Lab 02/20/25 16:24 Completed PT [Prothrombin Time with INR] Stat Lab 02/20/25 16:24 Completed PTT [Partial Thromboplastin Time] Stat Lab 02/20/25 16:24 Completed Vital Signs Vital signs: Vital Signs Temperature 100.1 F 02/20/25 15:59 Pulse Rate 92 02/20/25 15:59 Respiratory Rate 18 02/20/25 15:59 Blood Pressure 158/78 H 02/20/25 15:59 Pulse Oximetry (%) 95 02/20/25 15:59 Oxygen Delivery Method Room Air 02/20/25 15:59 PROCEDURES: Procedure Comment Dressing change left hip: Bloodsoaked and OpSite dressing from the lower surgical site were removed, the site is clean dry and intact no active bleeding no protruding foreign bodies nontender nonerythematous nonedematous. New Xeroform placed along the surgical line, 4 x 4's overlaid and then OpSite's addressed to the site. Patient tolerated the procedure well. Discharge Plan Plan Patient Disposition: HOME (Self Care) Patient condition on transfer: Stable Prescriptions/Referrals Prescriptions/Med Rec: No Action losartan-hydrochlorothiazide 100-12.5 mg tablet 1 tab PO DAILY carvedilol 12.5 mg tablet 12.5 mg PO Q12H Patient Comments: TAKE 1 TABLET TWICE A DAY oxybutynin chloride 5 mg tablet 5 mg PO DAILY sertraline 100 mg tablet 100 mg PO Q24H Patient Comments: TAKE 1 TABLET BY MOUTH EVERY DAY amlodipine 5 mg tablet 5 mg PO BID Patient Comments: TAKE 1 TABLET BY MOUTH TWICE A DAY clopidogrel 75 mg tablet 75 mg PO DAILY Patient Comments: TAKE 1 TABLET DAILY metformin 1,000 mg tablet 1,000 mg PO BID Patient Comments: TAKE 1 TABLET TWICE A DAY atorvastatin 40 mg tablet 40 mg PO DAILY Patient Comments: TAKE 1 TABLET BY MOUTH EVERY DAY Januvia 100 mg tablet 100 mg PO QDAY Januvia 100 mg tablet 100 mg PO DAILY Patient Comments: TAKE 1 TABLET DAILY Referrals: James Tran MD [Primary Care Provider, Internal Medicine] - In 1 week Problem List Clinical Impression: Surgical wound hemorrhage Patient/Caregiver Discharge Instructions Other Activity Instructions:: Keep the dressing clean and dry if it fills up with blood again return to the emergency room for reassessment I am more concerned about the anemia than I am about the wound, follow-up with the orthopedic surgeon. If there is high fever nausea vomiting redness swelling or streaking around the wound site return to the emergency room immediately. Print Language: Amharic Stand Alone Forms: [facility] Award Info., Work/School Release, Patient Portal Info Letter PA/BUILDING CODE ADMINISTRATOR Supervising Physician PA/BUILDING CODE ADMINISTRATOR Supervising Physician: Taye MARTINES Clinical Information Provided by: patient and EMS Medical Records reviewed [facility] and EMS Meds/Rx considered, not ordered None Labs/Rad/Tests considered, not ordered None Chronic Illness/Social Conditions Explain: Recent hip replacement in November 2024 Labs Labs: interpreted by me Imaging Imaging interpretation: interpreted by me
[2025-02-20 16:20] VITALS: PULSE 86; RESP 18; O2SAT 95; BMI 23.6
[2025-02-20 16:54] LABS: INR 1.0 (0.9-1.3); Partial Thromboplastin Time 29.8 Seconds (22.0-36.0); Prothrombin Time 11.1 Seconds (9.0-12.2)
[2025-02-20 17:08] LABS: Alanine Aminotransferase 10 U/L (10-49); Albumin, Serum 4.1 gm/dL (3.4-4.8); Albumin/Globulin Ratio 2.3 (1.2-2.2); Alkaline Phosphatase 94 U/L (46-116); Anion Gap 11 (7-16); Aspartate Amino Transferase 17 U/L (0-34); BUN/Creatinine Ratio 38 Ratio (12-20); Bilirubin,Total 0.5 mg/dL (0.3-1.2); Blood Urea Nitrogen 19 mg/dL (9-23); Calcium 9.0 mg/dL (8.3-10.6); Calcium (Corrected) 9.0 mg/dL (8.5-10.1); Carbon Dioxide 25.1 mMol/L (20.0-31.0); Chloride 103 mMol/L (98-107); Creatinine (Component) 0.5 mg/dL (0.6-1.3); Estimated Creatinine Clearance 82.6 mL/min (>60); Globulin 1.8 gm/dL (2.3-3.5); Glucose 162 mg/dL (74-106); Osmolality,Calculated 283 (275-295); Potassium 3.2 mMol/L (3.4-5.1); Sodium 139 mMol/L (136-145); Total Protein 5.9 gm/dL (5.7-8.2); eGFR > 60 See Note
[2025-02-20 17:45] LABS: Basophils # (Auto) 0.1 Thou/mm3 (0.0-0.2); Basophils % (Auto) 1 % (0-2.5); Eosinophils # (Auto) 0.2 Thou/mm3 (0.0-0.5); Eosinophils % (Auto) 2 % (0-10); Hematocrit 28.0 % (36.0-46.0); Hemoglobin 9.3 g/dL (12.0-16.0); Immature Granulocytes Auto 0.03 Thou/mm3 (0.00-0.00); Lymphocytes # (Auto) 2.1 Thou/mm3 (1.0-4.8); Lymphocytes % (Auto) 22 % (10-50); Mean Corpuscular HGB Conc 33.2 g/dl (31.0-37.0); Mean Corpuscular Hemoglobin 28.3 pg (25.0-35.0); Mean Corpuscular Volume 85 fL (80-100); Monocytes # (Auto) 0.8 Thou/mm3 (0.0-0.8); Monocytes % (Auto) 9 % (0-12); Neutrophils # (Auto) 6.4 Thou/mm3 (1.8-7.7); Neutrophils % (Auto) 67 % (37-80); Nucleated Red Blood Cell # 0.00 Thou/mm3 (0.00-0.00); Nucleated Red Blood Cell % 0 /100 WBC (0); Platelet Count 209 Thou/mm3 (140-440); RDW Standard Deviation 43.0 fL (36.4-46.3); Red Blood Count 3.29 Miln/mm3 (4.00-5.20); White Blood Count 9.6 Thou/mm3 (3.6-11.0)
--- NOTE | 2025-02-20 17:57 | PC.NURSE ---
CHERELLE IN TO TALK WITH PT
[2025-02-20 18:10] VITALS: BP 149/87; PULSE 89; RESP 18; O2SAT 96
== END 2025-02-20 18:10 | disposition home or self-care (01) ==
PROVIDERS: Registered Nurse General Practice; Emergency Provider Emergency Medicine; PCP Internal Medicine
DX: L76.22 Postprocedural hemorrhage of skin and subcutaneous tissue following other procedure (principal)
CPT/HCPCS: 36415; 73502; 80053; 85025; 85610; 85730; 99283